=== PATIENT | male | born 1935 | race Caucasian/White ===

== ENCOUNTER 2022-10-18 20:47 | Inpatient (IN) | payer OTHER ==
[~2022-10-18] VITALS: Ht 177.8 cm; Wt 79.5 kg
[2022-10-18] MEDS ORDERED: SODIUM CHLORIDE 0.9% 1000ML BAG (SEPSIS BOLUS) IV ONE (21:45)
[2022-10-18] MEDS ORDERED: SODIUM CHLORIDE 0.9% 1,650 ML IV SCH (22:00)
[2022-10-18] MEDS ORDERED: GLUCAGON,HUMAN RECOMBINANT 1MG/VIAL IV ONE (22:00)
[2022-10-18] MEDS ORDERED: ATROPINE SULFATE 1MG/ML VIAL IV ONE (22:00)
[2022-10-18] MEDS ORDERED: VANCOMYCIN 1G PREMIX 200 ML IV NR (22:30)
[2022-10-18 22:52] LABS: BASOPHILS % 0.2 % (0.0-2.0); EOSINOPHILS % 0.1 % (0.0-5.0); HEMATOCRIT. 31.3 % (42.0-52.0); HEMOGLOBIN. 10.2 g/dL (14.0-18.0); LYMPHOCYTES % 12.8 % (20.0-50.0); MEAN CORPUSCULAR HEMOGLOBIN 28.1 pg (28.0-32.0); MEAN PLATELET VOLUME 9.9 fl (7.4-10.4); MONOCYTES % 11.1 % (2.0-8.0); NEUTROPHILS % 75.8 % (40.0-76.0); PLATELET 153 x1000/uL (130-400); RED BLOOD CELL COUNT 3.64 mill/uL (4.7-6.1); RED CELL DISTRIBUTION WIDTH 15.1 % (11.6-14.6)
[2022-10-18 22:55] LABS: CHLORIDE 103 mEq/L (98-107)
[2022-10-18 22:57] LABS: INR 1.1; PROTHROMBIN TIME 11.4 sec (9.6-11.0)
[2022-10-18] MEDS: PIPERACILLIN/TAZOBACTAM 3.375GM/50ML PREMIX IV NR (23:29)
[2022-10-19] VITALS (37 sets, daily range): BP systolic 84–175; BP diastolic 39–97
[2022-10-19] MEDS ORDERED: LORAZEPAM 2MG/ML CPJ IV ONE (00:45)
[2022-10-19] MEDS ORDERED: LEVETIRACETAM 500MG PREMIX 100 ML IV ONE (00:45)
[2022-10-19] MEDS ORDERED: DOPAMINE 800 MG IV NR (00:45)
[2022-10-19] MEDS ORDERED: DOPAMINE 400MG/250ML PREMIX 250 ML IV ONE (00:45)
[2022-10-19] MEDS ORDERED: MORPHINE SULFATE 2 MG/ML CPJ (NOT FOR IM USE) IV ONE (01:00)
[2022-10-19] MEDS ORDERED: LEVOFLOXACIN 500MG PREMIX 100 ML IV SCH (01:30)
[2022-10-19] MEDS ORDERED: DIPHENHYDRAMINE 50MG/ML VIAL IV PRN (01:30)
[2022-10-19] MEDS ORDERED: ONDANSETRON HCL 4MG/2ML INJ IV PRN (01:30)
[2022-10-19] MEDS ORDERED: ACETAMINOPHEN 325MG TABLET PO PRN ×2 (01:30)
[2022-10-19] MEDS ORDERED: IPRATROPIUM/ALBUTEROL 0.5-3(2.5)MG/3ML NEB HHN PRN (01:30)
[2022-10-19] MEDS ORDERED: MAGNESIUM/ALUMINUM HYDROXIDE/SIMETHICONE 30ML UDC PO PRN (01:30)
[2022-10-19] MEDS: SODIUM CHLORIDE 0.9% 1,000 ML IV SCH ×3 (01:34→21:28)
[2022-10-19] MEDS: PIPERACILLIN/TAZOBACTAM 3.375GM/50ML PREMIX IV NR (01:34)
[2022-10-19] MEDS ORDERED: DOPAMINE 400MG/250ML PREMIX 250 ML IV PRN (01:45)
[2022-10-19 02:13] LABS: CLARITY URINE TURBID (CLEAR); COLOR URINE ORANGE (YELLOW); KETONES URINE NEGATIVE (NEGATIVE); LEUKOCYTE ESTERASE URINE 3+ (NEGATIVE); NITRITE URINE POSITIVE (NEGATIVE); OCCULT BLOOD URINE 3+ (NEGATIVE); PH URINE >=9.0 (4.5-8.0); PROTEIN URINE 4+ (NEGATIVE); SPECIFIC GRAVITY URINE 1.017 (1.005-1.030); UROBILINOGEN URINE 0.2 E.U./dL (0.2-1.0)
[2022-10-19] MEDS: ENOXAPARIN 30MG/0.3ML SYR SUBCUT SCH (16:49)
[2022-10-19] MEDS ORDERED: LEVOFLOXACIN 250MG PREMIX 50 ML IV SCH (21:00)
[2022-10-20] VITALS (93 sets, daily range): BP systolic 117–175; BP diastolic 53–111
[2022-10-20 05:31] LABS: BASOPHILS % 0.6 % (0.0-2.0); EOSINOPHILS % 2.3 % (0.0-5.0); HEMATOCRIT. 33.5 % (42.0-52.0); HEMOGLOBIN. 10.8 g/dL (14.0-18.0); LYMPHOCYTES % 14.6 % (20.0-50.0); MEAN CORPUSCULAR HEMOGLOBIN 28.1 pg (28.0-32.0); MEAN CORPUSCULAR VOLUME 86.9 fL (80.0-94.0); MEAN PLATELET VOLUME 9.6 fl (7.4-10.4); MONOCYTES % 8.8 % (2.0-8.0); NEUTROPHILS % 73.7 % (40.0-76.0); PLATELET 173 x1000/uL (130-400); RED BLOOD CELL COUNT 3.86 mill/uL (4.7-6.1); RED CELL DISTRIBUTION WIDTH 15.2 % (11.6-14.6)
[2022-10-20 05:41] LABS: PHOSPHORUS 2.8 mg/dL (2.5-4.9)
[2022-10-20] MEDS: SODIUM CHLORIDE 0.9% 1,000 ML IV SCH ×3 (08:29→19:05)
[2022-10-20] MEDS: PANTOPRAZOLE SODIUM 40 MG/VIAL IV SCH (08:31)
[2022-10-20] MEDS: ENOXAPARIN 30MG/0.3ML SYR SUBCUT SCH (17:23)
[2022-10-20] MEDS: CEFEPIME 2,000 MG in DEXT 5% WATER 100 ML IV SCH (19:04)
[2022-10-20] MEDS: CLONIDINE 0.1MG TABLET PO PRN (21:15)
[2022-10-21] VITALS (32 sets, daily range): BP systolic 148–190; BP diastolic 56–102
[2022-10-21] MEDS: BLOOD SUGAR DIAGNOSTIC STRIP TEST SCH ×3 (06:00→12:36)
[2022-10-21] MEDS: CEFEPIME 2,000 MG in DEXT 5% WATER 100 ML IV SCH (06:33)
[2022-10-21] MEDS: PANTOPRAZOLE SODIUM 40 MG/VIAL IV SCH (08:33)
[2022-10-21] MEDS: CLONIDINE 0.1MG TABLET PO PRN (08:34)
[2022-10-21] MEDS: SODIUM CHLORIDE 0.9% 1,000 ML IV SCH (11:42)
[2022-10-21] MEDS: HYDRALAZINE HCL 50MG TABLET PO SCH ×2 (11:43→14:00)
[2022-10-21] MEDS ORDERED: LOSARTAN POTASSIUM 100 MG TABLET PO SCH (14:30)
[2022-10-21] MEDS ORDERED: MEROPENEM 1,000 MG in SODIUM CHLORIDE 0.9% 100 ML IV SCH (17:00)
== END 2022-10-21 21:12 | disposition short-term general hospital (02) | DRG 871 ==
LOC: ER 20:47 → EDBEDREQTM 22:40 → EDBEDREQ 22:40 → MICUSO 10-19 00:49 → CVICU 10-19 14:51 → 6EST 10-21 15:00
PROVIDERS: ADMIT Internal Medicine; ATTEND Internal Medicine
PROC: 06HY33Z Insertion of Infusion Device into Lower Vein, Percutaneous Approach (ICD-10-PCS; principal; 2022-10-19)
DX: A41.50 Gram-negative sepsis, unspecified (principal); E43 Unspecified severe protein-calorie malnutrition; R65.21 Severe sepsis with septic shock; N17.9 Acute kidney failure, unspecified; N39.0 Urinary tract infection, site not specified; E87.20 Acidosis, unspecified; E78.00 Pure hypercholesterolemia, unspecified; Z66 Do not resuscitate; I25.10 Atherosclerotic heart disease of native coronary artery without angina pectoris; I48.0 Paroxysmal atrial fibrillation; N40.0 Benign prostatic hyperplasia without lower urinary tract symptoms; R13.10 Dysphagia, unspecified; D63.1 Anemia in chronic kidney disease; I12.9 Hypertensive chronic kidney disease with stage 1 through stage 4 chronic kidney disease, or unspecified chronic kidney disease; N18.9 Chronic kidney disease, unspecified; N40.1 Benign prostatic hyperplasia with lower urinary tract symptoms; I69.320 Aphasia following cerebral infarction; Z68.25 Body mass index [BMI] 25.0-25.9, adult; Z88.8 Allergy status to other drugs, medicaments and biological substances; Z87.440 Personal history of urinary (tract) infections; Z93.1 Gastrostomy status; Z95.5 Presence of coronary angioplasty implant and graft; Z79.01 Long term (current) use of anticoagulants
CPT/HCPCS: 36415; 71045; 80048; 80053; 81003; 82962; 83605; 83735; 84100; 84145; 85025; 87077; 87186; 87426; 93005; 99291; C9113; J0461; J0692; J1265; J1610; J1650; J1953; J1956; J2060; J2185; J2270; J2543; J3370; J7030; J7050; J7060